=== PATIENT | male | born 1985 | race American Indian/Alaskan Native ===

== ENCOUNTER 2017-07-01 21:25 | Emergency (ER) | payer OTHER ==
[2017-07-01 21:36] VITALS: BP 160/105
[2017-07-01] MEDS ORDERED: TORADOL IM ONE (22:41)
--- NOTE | 2017-07-01 22:46 | Emergency Department Report ---
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 MD Complaint: back pain Onset/Timin -: days(s) Similar Symptoms Previously: Yes Place: work Radiation: right leg Severity: moderate Severity scale (0 -10): 5 Quality: burning, sharp Consistency: intermittent Improves With: other (rest) Worsens With: movement, other (bending twistin heavy lifting) Associated Symptoms: denies: weakness, numbness, difficulty urinating, incontinence, fever/chills - Related Data Previous Rx's Medication Instructions Recorded Last Taken Type Cetirizine HCl [Allergy Relief] 10 mg PO DAILY #30 tablet 01/13/15 Unknown Rx Ciprofloxacin HCl [Cipro] 500 mg PO Q12H #14 tab 01/13/15 Unknown Rx Fluticasone Propionate [Flonase] 100 mcg NS QDAY #1 spray.susp 01/13/15 Unknown Rx Ibuprofen [Motrin] 800 mg PO Q8H PRN #30 tablet 01/13/15 Unknown Rx traMADol [Ultram] 50 mg PO Q6HR PRN #14 tablet 01/13/15 Unknown Rx Starch 51%(Nf) [Anusol] 1 each IN BID PRN #10 supp.rect 05/23/15 Unknown Rx Cyclobenzaprine [Flexeril] 10 mg PO TID PRN #30 tablet 07/01/17 Unknown Rx Naproxen [Naprosyn TAB] 500 mg PO BID PRN #60 tablet 07/01/17 Unknown Rx Allergies Allergy/AdvReac Type Severity Reaction Status Date / Time No Known Allergies Allergy Verified 01/13/15 05:22 ED Review of Systems ROS: Stated complaint: BACK PAIN Other details as noted in HPI Constitutional: denies: chills, fever Eyes: denies: eye pain, eye discharge, vision change ENT: denies: ear pain, throat pain Respiratory: denies: cough, shortness of breath, wheezing Cardiovascular: denies: chest pain, palpitations Endocrine: no symptoms reported Gastrointestinal: denies: abdominal pain, nausea, diarrhea Genitourinary: denies: urgency, dysuria Musculoskeletal: back pain, myalgia. denies: joint swelling, arthralgia Skin: denies: rash, lesions Neurological: denies: headache, weakness, paresthesias Psychiatric: denies: anxiety, depression Hematological/Lymphatic: denies: easy bleeding, easy bruising ED Past Medical Hx - Past Medical History Previous Medical History?: No - Surgical History Past Surgical History?: No - Social History Smoking Status: Never Smoker Substance Use Type: None - Medications Home Medications: Home Medications Medication Instructions Recorded Confirmed Last Taken Type Cetirizine HCl [Allergy Relief] 10 mg PO DAILY #30 tablet 01/13/15 Unknown Rx Ciprofloxacin HCl [Cipro] 500 mg PO Q12H #14 tab 01/13/15 Unknown Rx Fluticasone Propionate [Flonase] 100 mcg NS QDAY #1 spray.susp 01/13/15 Unknown Rx Ibuprofen [Motrin] 800 mg PO Q8H PRN #30 tablet 01/13/15 Unknown Rx traMADol [Ultram] 50 mg PO Q6HR PRN #14 tablet 01/13/15 Unknown Rx Starch 51%(Nf) [Anusol] 1 each IN BID PRN #10 supp.rect 05/23/15 Unknown Rx Cyclobenzaprine [Flexeril] 10 mg PO TID PRN #30 tablet 07/01/17 Unknown Rx Naproxen [Naprosyn TAB] 500 mg PO BID PRN #60 tablet 07/01/17 Unknown Rx ED Physical Exam - General Limitations: No Limitations General appearance: alert, in no apparent distress - Head Head exam: Present: atraumatic, normocephalic - Eye Eye exam: Present: normal appearance - ENT ENT exam: Present: mucous membranes moist - Neck Neck exam: Present: normal inspection - Respiratory Respiratory exam: Present: normal lung sounds bilaterally. Absent: respiratory distress - Cardiovascular Cardiovascular Exam: Present: regular rate, normal rhythm. Absent: systolic murmur, diastolic murmur, rubs, gallop - GI/Abdominal GI/Abdominal exam: Present: soft, normal bowel sounds - Rectal Rectal exam: Present: deferred - Extremities Exam Extremities exam: Present: normal inspection - Back Exam Back exam: Present: normal inspection, tenderness, muscle spasm (no posterior vertebral point tenderness no paraspinus muscle tenderness pos straight leg raise right ). Absent: CVA tenderness (R), CVA tenderness (L), paraspinal tenderness, vertebral tenderness, rash noted - Expanded Back Exam Expanded Back exam: Absent: saddle anesthesia Back exam: Sciatic Notch Tenderness: Right, Positive Straight Leg Raise: Right, Negative Straight Leg Raising: Left - Neurological Exam Neurological exam: Present: alert, oriented X3, CN II-XII intact, normal gait, reflexes normal - Expanded Neurological Exam Expanded Patient oriented to: Present: person, place, time Speech: Present: fluid speech Cranial nerves: EOM's Intact: Normal, Gag Reflex: Normal, Tongue Deviation: Normal, Nystagmus: Normal, Facial Sensation: Normal Cerebellar function: Finger to Nose: Normal, Heel to Mcdonald: Normal, Romberg: Normal Upper motor neuron: Lebron Neglect: Normal, Pronator Drift: Normal, Babinski Sign : Normal, Sensory Extinction: Normal Sensory exam: Upper Extremity Light Touch: Normal, Upper Extremity Pin Prick: Normal, Upper Extremity Temperature: Normal, UE 2 Point Discrimination: Normal, Lower Extremity Light Touch: Normal, Lower Extremity Pin Prick: Normal, Lower Extremity Temperature: Normal, LE 2 Point Discrimination: Normal Motor strength exam: RUE: 5, LUE: 5, RLE: 5, LLE: 5 DTR: bicep (R): 2+, bicep (L): 2+, tricep (R): 2+, tricep (L): 2+, knee (R): 2+ , knee (L): 2+, ankle (R): 2+, ankle (L): 2+ Best Eye Response (Montse): (4) open spontaneously Best Motor Response (Montse): (6) obeys commands Best Verbal Response (Montse): (5) oriented [place] Total: 15 - Psychiatric Psychiatric exam: Present: normal affect, normal mood - Skin Skin exam: Present: warm, dry, intact, normal color. 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 exam: back no deformity no ecchymosis no abrasion no laceration no posterior vertebral point tenderness no paraspinus muscle tenderness pos straight leg righ no weakness no paresthesis no numbness no tingling no loss or decrease in bowel or bladder function will treat this low back strain with nsaids and muscle relaxants with moist heat therapy , pt will follow up with primary care if symptoms not improving, pt with htn episode this visit pt denies symptoms no headache no dizziness no lightheadedness no cp no sob pt is a/o x 3 ambulatory to baseline with nad pt avised to maintain bp log and bring to pcp follow up appointment for evaluation of bp, pt verbalized agreement and understanding with same. Critical care attestation.: If time is entered above; I have spent that time in minutes in the direct care of this critically ill patient, excluding procedure time. ED Disposition Clinical Impression: Low back strain Qualifiers: Encounter type: initial encounter Qualified Code(s): S39.012A - Strain of muscle, fascia and tendon of lower back, initial encounter Disposition: DC-01 TO HOME OR SELFCARE Is pt being admited?: No Does the pt Need Aspirin: No Condition: Good Instructions: Low Back Strain (ED), Core Strengthening Exercises (GEN) Prescriptions: Cyclobenzaprine [Flexeril] 10 mg PO TID PRN #30 tablet PRN Reason: Muscle Spasm Naproxen [Naprosyn TAB] 500 mg PO BID PRN #60 tablet PRN Reason: Pain Referrals: PRIMARY CARE, [Primary Care Provider] - 3-5 Days Forms: Work/School Release Form(ED) Time of Disposition: 22:55
== END 2017-07-01 23:02 | disposition home or self-care (01) ==
LOC: ED 21:25
DX: S39.012A Strain of muscle, fascia and tendon of lower back, initial encounter (principal); X50.0XXA Overexertion from strenuous movement or load, initial encounter; Y93.9 Activity, unspecified; Y92.89 Other specified places as the place of occurrence of the external cause; Y99.9 Unspecified external cause status
CPT/HCPCS: 96372; 99282; J1885

== ENCOUNTER 2017-10-23 10:09 | Observation (INO) | payer OTHER ==
[2017-10-23 11:16] LABS: Basophils # (Auto) 0.1 K/mm3 (0.0-0.1); Basophils % (Auto) 1.1 % (0.0-1.8); Eosinophils # (Auto) 0.2 K/mm3 (0.0-0.4); Eosinophils % (Auto) 1.8 % (0.0-4.3); Hemoglobin 15.5 gm/dl (11.8-15.2); Lymphocytes % (Auto) 23.8 % (13.4-35.0); Mean Corpuscular HGB Conc 34 % (32-34); Mean Corpuscular Hemoglobin 30 pg (28-32); Mean Corpuscular Volume 88 fl (84-94); Monocytes # (Auto) 0.7 K/mm3 (0.0-0.8); Monocytes % (Auto) 7.7 % (0.0-7.3); Platelet Count 302 K/mm3 (140-440); Red Blood Count 5.24 M/mm3 (3.65-5.03); Red Cell Distribution Width 13.1 % (13.2-15.2)
[2017-10-23 11:26] LABS: BUN/Creatinine Ratio 19; Blood Urea Nitrogen 15 mg/dL (9-20); Calcium 9.9 mg/dL (8.4-10.2); Hemolysis Index 5
[2017-10-23] MEDS ORDERED: NORCO 5/325 PO ONE (12:36)
--- NOTE | 2017-10-23 12:45 | Emergency Department Report ---
ED Chest Pain HPI - General Chief Complaint: Chest Pain Stated Complaint: CHEST PAIN Time Seen by Provider: 10/23/17 12:26 Source: patient Mode of arrival: Ambulatory Limitations: No Limitations - History of Present Illness Initial Comments: 32-year-old male with no significant past medical history presents to the Hospital complaining of headache, chest pain, and no syncopal episode. Symptoms started at 7 AM or ambulating. Patient states he felt lightheaded, his vision got dark, the next and you know he was down on his knees. He denies loc or head injury. Patient states he has a bitemporal headache that is moderate in intensity. Episode he had chest tightness associated shortness of breath and felt clammy. He denies nausea, vomiting, or diaphoresis. Patient denies blurry vision no focal deficits at this time. Patient denies smoking, family history of CAD, or personal cardiac history. Reports a negative stress test last year performance down the street from the hospital but patient cannot recall the group name. Previous medical records reviewed and patient has repeated elevated blood pressures but denies a history of hypertension. Patient denies having a primary care doctor or having reliable follow-up because he does not like to see doctors. Patient denies calf tenderness, edema , or recent travel. - Related Data Previous Rx's Medication Instructions Recorded Last Taken Type Cetirizine HCl [Allergy Relief] 10 mg PO DAILY #30 tablet 01/13/15 Unknown Rx Ciprofloxacin HCl [Cipro] 500 mg PO Q12H #14 tab 01/13/15 Unknown Rx Fluticasone Propionate [Flonase] 100 mcg NS QDAY #1 spray.susp 01/13/15 Unknown Rx Ibuprofen [Motrin] 800 mg PO Q8H PRN #30 tablet 01/13/15 Unknown Rx traMADol [Ultram] 50 mg PO Q6HR PRN #14 tablet 01/13/15 Unknown Rx Starch 51%(Nf) [Anusol] 1 each ND BID PRN #10 supp.rect 05/23/15 Unknown Rx Cyclobenzaprine [Flexeril] 10 mg PO TID PRN #30 tablet 07/01/17 Unknown Rx Naproxen [Naprosyn TAB] 500 mg PO BID PRN #60 tablet 07/01/17 Unknown Rx Allergies Allergy/AdvReac Type Severity Reaction Status Date / Time No Known Allergies Allergy Verified 10/23/17 10:13 Heart Score - HEART Score History: Slightly suspicious EKG: Normal Age: < 45 Risk factors: 1-2 risk factors Troponin: < normal limit HEART Score: 1 ED Review of Systems ROS: Stated complaint: CHEST PAIN Other details as noted in HPI Comment: All other systems reviewed and negative Other: Constitutional: No fevers chills Eyes: No eye pain visual changes ENT: No ear pain or throat pain Neck: Denies pain Respiratory: Denies cough wheezing Cardiovascular: Positive heart fluttering with episode GI: Denies abdominal pain, nausea, vomiting, diarrhea : Denies dysuria Musculoskeletal: Denies back pain Skin: Denies rash, lesions, erythema Neurologic: Denies numbness, focal weakness Psychiatric: Denies suicidal ideation, hallucinations ED Past Medical Hx - Past Medical History Previous Medical History?: No - Surgical History Past Surgical History?: No - Social History Smoking Status: Never Smoker Substance Use Type: Alcohol - Medications Home Medications: Home Medications Medication Instructions Recorded Confirmed Last Taken Type Cetirizine HCl [Allergy Relief] 10 mg PO DAILY #30 tablet 01/13/15 Unknown Rx Ciprofloxacin HCl [Cipro] 500 mg PO Q12H #14 tab 01/13/15 Unknown Rx Fluticasone Propionate [Flonase] 100 mcg NS QDAY #1 spray.susp 01/13/15 Unknown Rx Ibuprofen [Motrin] 800 mg PO Q8H PRN #30 tablet 01/13/15 Unknown Rx traMADol [Ultram] 50 mg PO Q6HR PRN #14 tablet 01/13/15 Unknown Rx Starch 51%(Nf) [Anusol] 1 each ND BID PRN #10 supp.rect 05/23/15 Unknown Rx Cyclobenzaprine [Flexeril] 10 mg PO TID PRN #30 tablet 07/01/17 Unknown Rx Naproxen [Naprosyn TAB] 500 mg PO BID PRN #60 tablet 07/01/17 Unknown Rx ED Physical Exam - General Limitations: No Limitations - Other Other exam information: General: No limitations, patient is alert in no acute distress Head exam: Atraumatic, normocephalic Eyes exam: Normal appearance, pupils equal reactive to light, extraocular movements intact ENT: Moist mucous membrane, normal oropharynx Neck exam: Normal inspection, full range of motion, no meningismus nontender Respiratory exam: Clear to auscultation bilateral, no wheezes, rales, crackles Cardiovascular: Normal rate and rhythm, normal heart sounds chest wall nontender Abdomen: Soft, nondistended, and nontender, with normal bowel sounds, no rebound, or guarding Extremity: Full range of motion normal inspection no deformity Back: Normal Inspection, full range of motion, no tenderness Neurologic: Alert, oriented x3, cranial nerves intact, no motor or sensory deficit Psychiatric: normal affect, normal mood Skin: Warm, dry, intact ED Course Vital Signs 10/23/17 10:13 Temperature 97.8 F Pulse Rate 77 Respiratory 18 Rate Blood Pressure 170/106 O2 Sat by Pulse 100 Oximetry - Reevaluation(s) Reevaluation #1: 10/23/17 13:19 orthostatics neg Irving for FOUNTAIN ordered ASA for cp (now resolved) BEATRICE score - Beatrice Score Age > 65: (0) No Aspirin use within the Past 7 Days: (0) No 3 or more CAD Risk Factors: (0) No 2 or more Angina events in past 24 hrs: (0) No Known CAD with more than 50% Stenosis: (0) No Elevated Cardiac Markers: (0) No ST Deviation Greater than 0.5mm: (0) No BEATRICE Score: 0 ED Medical Decision Making - Lab Data Result diagrams: 10/23/17 10:33 10/23/17 10:30 Lab Results 10/23/17 10/23/17 Range/Units 10:30 10:33 WBC 8.6 (4.5-11.0) K/mm3 RBC 5.24 H (3.65-5.03) M/mm3 Hgb 15.5 H (11.8-15.2) gm/dl Hct 46.0 H (35.5-45.6) % MCV 88 (84-94) fl MCH 30 (28-32) pg MCHC 34 (32-34) % RDW 13.1 L (13.2-15.2) % Plt Count 302 (140-440) K/mm3 Lymph % (Auto) 23.8 (13.4-35.0) % Posey % (Auto) 7.7 H (0.0-7.3) % Eos % (Auto) 1.8 (0.0-4.3) % Baso % (Auto) 1.1 (0.0-1.8) % Lymph # 2.0 (1.2-5.4) K/mm3 Posey # 0.7 (0.0-0.8) K/mm3 Eos # 0.2 (0.0-0.4) K/mm3 Baso # 0.1 (0.0-0.1) K/mm3 Seg Neutrophils % 65.6 (40.0-70.0) % Seg Neutrophils # 5.6 (1.8-7.7) K/mm3 Sodium 141 (137-145) mmol/L Potassium 4.6 (3.6-5.0) mmol/L Chloride 101.2 (98-107) mmol/L Carbon Dioxide 27 (22-30) mmol/L Anion Gap 17 mmol/L BUN 15 (9-20) mg/dL Creatinine 0.8 (0.8-1.5) mg/dL Estimated GFR > 60 ml/min BUN/Creatinine Ratio 19 % Glucose 98 (75-100) mg/dL Calcium 9.9 (8.4-10.2) mg/dL Troponin T < 0.010 (0.00-0.029) ng/mL - EKG Data -: EKG Interpreted by Me (left posterior fasciuclar block) EKG shows normal: sinus rhythm, axis (150), QRS complexes (104), ST-T waves (no semi/t inv) Rate: normal - EKG Data When compared to previous EKG there are: no significant change (comparedto ) - Radiology Data Radiology results: report reviewed (ct head: naf) - Medical Decision Making Plan to admit for cp near syncope workup. Initial head CT unremarkable. EKG unchanged. Hospitalist informed - Differential Diagnosis dehydration, arrhythmia, MO, unstable angina, PE, ICH Critical Care Time: No Critical care attestation.: If time is entered above; I have spent that time in minutes in the direct care of this critically ill patient, excluding procedure time. ED Disposition Clinical Impression: Syncope, near, Headache, Chest pain, Hypertension Disposition: OP ADMIT IP TO THIS HOSP Is pt being admited?: Yes Does the pt Need Aspirin: Yes Condition: Stable Time of Disposition: 13:18 [facility]
--- NOTE | 2017-10-23 13:02 | Cat Scan Report ---
CT HEAD WITHOUT CONTRAST: 10/23/17 10:09:00 CLINICAL: Headache and near syncope. TECHNIQUE: 2.5-mm noncontrast scans. COMPARISON:None FINDINGS: The ventricles and sulci are normal for age. No abnormal density. No mass or mass effect. No hemorrhage, edema or extra-axial collection. The sinuses are clear. Normal orbits and soft tissues. The calvarium and skull base are intact. IMPRESSION: Normal head CT.
--- NOTE | 2017-10-23 13:47 | XRay Report ---
CHEST TWO VIEWS: 10/23/17 10:09:00 CLINICAL: Chest pain. COMPARISON: 01/12/15 FINDINGS: The heart is normal size with a left ventricular contour. Normal pulmonary vessels. The lungs are normally expanded and clear.The bones and soft tissues are unremarkable. IMPRESSION: Hypertensive changes in the heart. No acute cardiopulmonary process.
--- NOTE | 2017-10-23 15:42 | History and Physical Report ---
History of Present Illness Date of examination: 10/23/17 Date of admission: 10/23/17 15:34 Chief complaint: Chief complaint: passed out couple of hours ago. History of present illness: History of present illness:32-year-old -[place] male with past medical history of allergic rhinitis muscle spasms and borderline hypertension not on any medications for blood pressure comes in for passing out at work after leaving work. No chest pain. No fever no chills. No shortness of breath.[place]ulcan lightheaded. Has a headache. No recent travel. Review of System: Constitutional: no fever, no chills, no weight loss Ears, eyes, nose, mouth and throat: no nasal congestion, no nasal discharge, no sinus pressure, no vision change, no red eye. Neck: No neck pain or rigidity. Cardiovascular: No chest pain, no orthopnea, no palpitations, no leg swelling Respiratory: No shortness of breath, no cough, no congestion, no wheezing Gastrointestinal: no abdominal pain, no nausea, no vomiting Genitourinary : no dysuria, no hematuria Musculoskeletal: no joint swelling or muscle ache Integumentary: no rash, no pruritis Neurological: syncope and lightheadedness Endocrine: no cold or heat intolerance, no polyuria or polydipsia Hematologic/Lymphatic: no easy bruising, no easy bleeding, no gland swelling Allergic/Immunologic: no urticaria, no angioedema. Past History Past Medical History: hypertension (borderline), other (allergic rhinitis and muscle spasms) Past Surgical History: No surgical history Social history: no significant social history, lives with family, full code Family history: hypertension Medications and Allergies Allergies Allergy/AdvReac Type Severity Reaction Status Date / Time No Known Allergies Allergy Verified 10/23/17 10:13 Home Medications Medication Instructions Recorded Confirmed Last Taken Type Cetirizine HCl [Allergy Relief] 10 mg PO DAILY #30 tablet 01/13/15 Unknown Rx Ciprofloxacin HCl [Cipro] 500 mg PO Q12H #14 tab 01/13/15 Unknown Rx Fluticasone Propionate [Flonase] 100 mcg NS QDAY #1 spray.susp 01/13/15 Unknown Rx Ibuprofen [Motrin] 800 mg PO Q8H PRN #30 tablet 01/13/15 Unknown Rx traMADol [Ultram] 50 mg PO Q6HR PRN #14 tablet 01/13/15 Unknown Rx Starch 51%(Nf) [Anusol] 1 each ND BID PRN #10 supp.rect 05/23/15 Unknown Rx Cyclobenzaprine [Flexeril] 10 mg PO TID PRN #30 tablet 07/01/17 Unknown Rx Naproxen [Naprosyn TAB] 500 mg PO BID PRN #60 tablet 07/01/17 Unknown Rx Review of Systems All systems: negative Constitutional: no weight loss, no weight gain, no fever, no chills, no sweats, no night sweats Exam - Physical Exam Narrative exam: Lying in bed comfortably - Constitutional Vitals: Temp Pulse Resp BP Pulse Ox 98.0 F 77 16 144/91 97 10/23/17 13:15 10/23/17 13:18 10/23/17 13:19 10/23/17 13:18 10/23/17 13:19 General appearance: Present: no acute distress, well-nourished - EENT Eyes: Present: PERRL ENT: hearing intact, clear oral mucosa - Neck Neck: Present: supple, normal ROM - Respiratory Respiratory effort: normal Respiratory: bilateral: CTA - Cardiovascular Heart rate: 70 Rhythm: regular Heart Sounds: Present: S1 & S2. Absent: rub, click - Extremities Extremities: no ischemia, pulses intact, pulses symmetrical, No edema Peripheral Pulses: within normal limits - Abdominal General gastrointestinal: Present: soft, non-tender, non-distended, normal bowel sounds Male genitourinary: Present: normal - Rectal Rectal Exam: deferred - Integumentary Integumentary: Present: clear, warm, dry - Musculoskeletal Musculoskeletal: gait normal, strength equal bilaterally - Psychiatric Psychiatric: appropriate mood/affect, intact judgment & insight - Neurologic Neurologic: CNII-XII intact, moves all extremities - Allied Health Allied health notes reviewed: nursing, case management (he is) Results - Labs CBC & Chem 7: 10/23/17 10:33 10/23/17 10:30 Labs: Laboratory Last Values WBC 8.6 K/mm3 (4.5-11.0) 10/23/17 10:33 RBC 5.24 M/mm3 (3.65-5.03) H 10/23/17 10:33 Hgb 15.5 gm/dl (11.8-15.2) H 10/23/17 10:33 Hct 46.0 % (35.5-45.6) H 10/23/17 10:33 MCV 88 fl (84-94) 10/23/17 10:33 MCH 30 pg (28-32) 10/23/17 10:33 MCHC 34 % (32-34) 10/23/17 10:33 RDW 13.1 % (13.2-15.2) L 10/23/17 10:33 Plt Count 302 K/mm3 (140-440) 10/23/17 10:33 Lymph % (Auto) 23.8 % (13.4-35.0) 10/23/17 10:33 Garza % (Auto) 7.7 % (0.0-7.3) H 10/23/17 10:33 Eos % (Auto) 1.8 % (0.0-4.3) 10/23/17 10:33 Baso % (Auto) 1.1 % (0.0-1.8) 10/23/17 10:33 Lymph # 2.0 K/mm3 (1.2-5.4) 10/23/17 10:33 Garza # 0.7 K/mm3 (0.0-0.8) 10/23/17 10:33 Eos # 0.2 K/mm3 (0.0-0.4) 10/23/17 10:33 Baso # 0.1 K/mm3 (0.0-0.1) 10/23/17 10:33 Seg Neutrophils % 65.6 % (40.0-70.0) 10/23/17 10:33 Seg Neutrophils # 5.6 K/mm3 (1.8-7.7) 10/23/17 10:33 Sodium 141 mmol/L (137-145) 10/23/17 10:30 Potassium 4.6 mmol/L (3.6-5.0) 10/23/17 10:30 Chloride 101.2 mmol/L (98-107) 10/23/17 10:30 Carbon Dioxide 27 mmol/L (22-30) 10/23/17 10:30 Anion Gap 17 mmol/L 10/23/17 10:30 BUN 15 mg/dL (9-20) 10/23/17 10:30 Creatinine 0.8 mg/dL (0.8-1.5) 10/23/17 10:30 Estimated GFR > 60 ml/min 10/23/17 10:30 BUN/Creatinine Ratio 19 % 10/23/17 10:30 Glucose 98 mg/dL (75-100) 10/23/17 10:30 Calcium 9.9 mg/dL (8.4-10.2) 10/23/17 10:30 Troponin T < 0.010 ng/mL (0.00-0.029) 10/23/17 12:59 Short CBC 10/23/17 Range/Units 10:33 WBC 8.6 (4.5-11.0) K/mm3 Hgb 15.5 H (11.8-15.2) gm/dl Hct 46.0 H (35.5-45.6) % Plt Count 302 (140-440) K/mm3 BMP 10/23/17 10:30 Sodium 141 Potassium 4.6 Chloride 101.2 Carbon Dioxide 27 BUN 15 Creatinine 0.8 Glucose 98 Calcium 9.9 Cardiac Enzymes 10/23/17 10/23/17 Range/Units 10:30 12:59 Troponin T < 0.010 < 0.010 (0.00-0.029) ng/mL - Imaging and Cardiology EKG: report reviewed (sinus rhythm with heart rate of 80/m left posterior fascicular block and LVH. Deep S waves in lead V 2 lead V3) Chest x-ray: report reviewed (hypertensive changes in the heart) Assessment and Plan Advance Directives: Yes (full code) VTE prophylaxis?: Chemical Plan of care discussed with patient/family: Yes - Patient Problems (1) Syncope and collapse Current Visit: Yes Status: Acute Plan to address problem: patient had syncope. We will get a carotid duplex scan echocardiogram and Lexiscan as part of workup for syncope (2) Hypertension Current Visit: Yes Status: Chronic Qualifiers: Hypertension type: essential hypertension Qualified Code(s): I10 - Essential (primary) hypertension Plan to address problem: atient has high blood pressure with multiple high readings. Patient needs to on antihypertensive.He has an enlarged heart secondary to hypertension.Will start him on losartan 100 mg once a day. Patient to be discharged on losartan. patient to be counseled about his bp. (3) Headache Current Visit: Yes Status: Chronic Qualifiers: Headache type: tension-type Plan to address problem: Fioricet 3 times a day when necessary (4) Allergic rhinitis Current Visit: Yes Status: Chronic Qualifiers: Chronicity: chronic Allergic rhinitis trigger: pollen Plan to address problem: continue Flonase (5) DVT prophylaxis Current Visit: Yes Status: Acute Plan to address problem: patient on Lovenox 40 mg subcutaneous qd
[2017-10-23] MEDS ORDERED: MILK OF MAGNESIA PO PRN (15:43)
[2017-10-23] MEDS ORDERED: TYLENOL PO PRN (15:43)
[2017-10-23] MEDS ORDERED: ZOFRAN IV PRN (15:43)
[2017-10-23] MEDS ORDERED: DULCOLAX PR PRN (15:43)
[2017-10-23] MEDS ORDERED: PERCOCET 5/325 PO PRN (15:44)
[2017-10-23] MEDS ORDERED: MORPHINE IV PRN (15:44)
[2017-10-23] MEDS ORDERED: D5/0.45NS 1,000 ML IV SCH (16:00)
[2017-10-23] MEDS ORDERED: MORPHINE ONE (16:02)
[2017-10-23 18:44] LABS: Creatine Kinase MB 4.1 ng/mL (0.0-4.0)
[2017-10-23] MEDS: PEPCID PO SCH (22:00)
[2017-10-23] MEDS ORDERED: AMBIEN PO PRN (22:00)
[2017-10-23 23:25] LABS: Creatine Kinase MB 3.7 ng/mL (0.0-4.0)
[2017-10-24 05:59] LABS: Basophils % (Auto) 0.4 % (0.0-1.8); Eosinophils # (Auto) 0.2 K/mm3 (0.0-0.4); Eosinophils % (Auto) 2.4 % (0.0-4.3); Hematocrit 47.1 % (35.5-45.6); Hemoglobin 15.6 gm/dl (11.8-15.2); Lymphocytes # (Auto) 2.1 K/mm3 (1.2-5.4); Lymphocytes % (Auto) 25.6 % (13.4-35.0); Mean Corpuscular HGB Conc 33 % (32-34); Mean Corpuscular Hemoglobin 29 pg (28-32); Mean Corpuscular Volume 87 fl (84-94); Monocytes # (Auto) 0.7 K/mm3 (0.0-0.8); Monocytes % (Auto) 8.4 % (0.0-7.3); Platelet Count 289 K/mm3 (140-440); Red Blood Count 5.43 M/mm3 (3.65-5.03); Red Cell Distribution Width 13.2 % (13.2-15.2)
[2017-10-24 06:28] LABS: Creatine Kinase MB 3.2 ng/mL (0.0-4.0)
[2017-10-24 06:32] LABS: Alanine Aminotransferase 24 units/L (7-56); Albumin 3.9 g/dL (3.9-5); BUN/Creatinine Ratio 17; Blood Urea Nitrogen 12 mg/dL (9-20); Calcium 9.4 mg/dL (8.4-10.2); Hemolysis Index 5
[2017-10-24] MEDS ORDERED: LEXISCAN IV ONE ×2 (08:16→08:22)
[2017-10-24] MEDS ORDERED: TYLENOL ONE (09:30)
[2017-10-24] MEDS: COZAAR PO SCH ×2 (11:38→13:37)
[2017-10-24] MEDS ORDERED: FLONASE NS SCH (12:00)
[2017-10-24] MEDS ORDERED: NORVASC PO SCH (12:00)
--- NOTE | 2017-10-24 13:24 | Discharge Summary ---
Providers - Providers Date of Admission: 10/23/17 15:34 Date of discharge: 10/24/17 Attending physician: DEBO MOMIN Primary care physician: [employer] SENIOR ASSOCIATE Hospitalization Condition: Stable Hospital course: 32-year-old -Beninese male with past medical history of allergic rhinitis muscle spasms and borderline hypertension not on any medications for blood pressure came in for a presyncopal episode near elevator after leaving work. Patient stated that he never passed out completely, no seizure like activities and did not hit his head with anything. In the ER his Ct head was unremarkable and BP was 170/106. He was further evaluated by carotid doppler which showed <50% stenosis b/l and myocardial stress test showed no reversible ischemia. His 2d echo showed preserved EF. He was placed on BP meds and ROE was monitored. He was advised to f/u with contracting manager for event monitor. Discharge diagnosis: (1) PreSyncope likely from uncontrolled HTN (2) Hypertension, uncontrolled (3) Tension Headache placed on fiorecet and symptom resolved (4) Allergic rhinitis continue Flonase (5) DVT prophylaxis patient placed on Lovenox 40 mg subcutaneous qd Disposition: DC- TO HOME OR SELFCARE Time spent for discharge: 32 minutes Core Measure Documentation - Palliative Care Palliative Care/ Comfort Measures: Not Applicable - Core Measures Any of the following diagnoses?: none Exam - Physical Exam Narrative exam: General appearance: Present: no acute distress, well-nourished - EENT Eyes: Present: PERRL ENT: hearing intact, clear oral mucosa - Neck Neck: Present: supple, normal ROM - Respiratory Respiratory effort: normal Respiratory: bilateral: CTA - Cardiovascular Heart rate: 70 Rhythm: regular Heart Sounds: Present: S1 & S2. Absent: rub, click - Extremities Extremities: no ischemia, pulses intact, pulses symmetrical, No edema Peripheral Pulses: within normal limits - Abdominal General gastrointestinal: Present: soft, non-tender, non-distended, normal bowel sounds Male genitourinary: Present: normal - Rectal Rectal Exam: deferred - Integumentary Integumentary: Present: clear, warm, dry - Musculoskeletal Musculoskeletal: gait normal, strength equal bilaterally - Psychiatric Psychiatric: appropriate mood/affect, intact judgment & insight - Neurologic Neurologic: CNII-XII intact, moves all extremities - Allied Health Allied health notes reviewed: nursing, case management (he is) - Constitutional Vitals: Temp Pulse Resp BP Pulse Ox 98.3 F 116 H 21 146/88 99 10/24/17 06:03 10/24/17 09:09 10/24/17 06:03 10/24/17 09:09 10/24/17 06:03 Plan Activity: advance as tolerated Weight Bearing Status: Weight Bear as Tolerated Diet: low fat, low salt Additional Instructions: F/u with [facility] for event monitoring in one week. Follow up with: PRIMARY CARE, [Primary Care Provider] - 3-5 Days Forms: Work/School Release Form Prescriptions: RX: amLODIPine [Norvasc] 10 mg PO QDAY #30 tablet RX: Carvedilol [Coreg] 3.125 mg PO BID #60 tablet RX: Losartan [Cozaar] 100 mg PO QDAY #30 tablet
[2017-10-24 13:36] VITALS: BP 146/85
[2017-10-24] MEDS: PEPCID PO SCH (13:43)
[2017-10-24] MEDS ORDERED: COREG PO SCH (14:00)
--- NOTE | 2017-10-24 22:34 | Treadmill Report ---
INDICATION: Chest pain. ORDERING PHYSICIAN: Emeka Conway MD FINDINGS: There is no scintigraphic evidence of myocardial ischemia. The left ventricle is normal in size. There is normal wall motion and wall thickening. The left ventricular ejection fraction is measured at 49%. CONCLUSION: 1. No scintigraphic evidence of myocardial ischemia. Normal wall motion and wall thickening with an ejection fraction measured at 49%. 2. This is a low risk myocardial perfusion scan associated with 1-year cardiovascular mortality of less than 1%. JOB# [id number] CLARISSE/CLARI
--- NOTE | 2017-10-25 15:08 | Vascular Lab Report ---
CAROTID DUPLEX STUDY: RIGHT PSVEDV CCA PROX:8716 CCA DIST:9419 ICA PROX:8416 ICA MID:5723 ICA DIST:6829 ECA: [id number] VERT: 50 22 LEFT PSVEDV CCA PROX:48129 CCA DIST:9625 ICA PROX:7322 ICA MID:6725 ICA DIST:6929 ECA: 9813 VERT: 47 13 REASON FOR EXAM: Syncope. COMMENTS ON THE RIGHT: Doppler frequency analysis is consistent with Less than 50% reduction of the internal carotid artery. The common carotid artery is patent. The external carotid artery is patent. The vertebral artery has antegrade flow. COMMENTS ON THE LEFT: Doppler frequency analysis is consistent with Less than 50% diameter reduction of the internal carotid artery. The common carotid artery is patent. The external carotid artery is patent. The vertebral artery has antegrade flow. IMPRESSION: Less than 50% diameter reduction in the internal carotid arteries bilaterally.
== END 2017-10-24 16:15 | disposition home or self-care (01) ==
LOC: ED 10:09 → INTOOBSV 15:34 → 4A 15:34
PROVIDERS: ADMIT Internal Medicine; ATTEND Internal Medicine
DX: R55 Syncope and collapse (principal); J30.9 Allergic rhinitis, unspecified; G44.209 Tension-type headache, unspecified, not intractable; R07.9 Chest pain, unspecified; I10 Essential (primary) hypertension; Z82.49 Family history of ischemic heart disease and other diseases of the circulatory system
CPT/HCPCS: 36415; 70450; 71020; 78452; 80048; 80053; 82550; 82553; 84484; 85025; 93005; 93010; 93017; 93306; 93880; 96361; 96374; 99285; A9502; G0378; J2270; J2785

== ENCOUNTER 2017-10-25 17:35 | Emergency (ER) | payer OTHER ==
[2017-10-25 17:59] VITALS: BP 141/92
== END 2017-10-26 02:50 | disposition left against medical advice (07) ==
LOC: ED 17:35
DX: R07.9 Chest pain, unspecified (principal); Z53.21 Procedure and treatment not carried out due to patient leaving prior to being seen by health care provider

== ENCOUNTER 2018-03-19 23:31 | Emergency (ER) | payer OTHER ==
[2018-03-19 23:39] VITALS: BP 132/94
--- NOTE | 2018-03-20 00:36 | XRay Report ---
FINAL REPORT EXAM: XR ANKLE 2V RT HISTORY: rt ankle swelling and pain TECHNIQUE: AP and lateral views of the right ankle were submitted. FINDINGS: The ankle mortise is well maintained. There is no evidence of fracture or joint effusion. The soft tissues are unremarkable. IMPRESSION: Within normal limits.
--- NOTE | 2018-03-20 00:48 | Emergency Department Report ---
ED Extremity Problem HPI - General Chief complaint: Extremity Injury, Lower Stated complaint: RIGHT ANKLE PAIN Time Seen by Provider: 03/20/18 00:42 Source: patient Mode of arrival: Ambulatory Limitations: No Limitations - History of Present Illness Initial comments: 32 y/o -[place] male comes to the emergency room complaining of right ankle pain. Patient reports that he stepped on a pallet and his ankle went through the palate and broke the palate now having pain in his right ankle. Patient reports that this happened tonight. Patient reports he took some pain relief medicine but unsure if it was ibuprofen or acetaminophen. Patient reports a past medical history of hypertension but no longer taking medication he has no known drug allergies and currently takes no medications on a daily basis. MD Complaint: extremity pain -: This evening Location: right History of Same: No -: Yes arthralgia Radiation: none Severity scale (0 -10): 9 Quality: aching Consistency: constant, intermittent Improves with: nothing Worsens with: weight bearing - Related Data Previous Rx's Medication Instructions Recorded Last Taken Type Cetirizine HCl [Allergy Relief] 10 mg PO DAILY #30 tablet 01/13/15 Unknown Rx Ciprofloxacin HCl [Cipro] 500 mg PO Q12H #14 tab 01/13/15 Unknown Rx Fluticasone Propionate [Flonase] 100 mcg NS QDAY #1 spray.susp 01/13/15 Unknown Rx Ibuprofen [Motrin] 800 mg PO Q8H PRN #30 tablet 01/13/15 Unknown Rx traMADol [Ultram] 50 mg PO Q6HR PRN #14 tablet 01/13/15 Unknown Rx Starch 51%(Nf) [Anusol] 1 each NC BID PRN #10 supp.rect 05/23/15 Unknown Rx Cyclobenzaprine [Flexeril] 10 mg PO TID PRN #30 tablet 07/01/17 Unknown Rx Naproxen [Naprosyn TAB] 500 mg PO BID PRN #60 tablet 07/01/17 Unknown Rx Carvedilol [Coreg] 3.125 mg PO BID #60 tablet 10/24/17 Unknown Rx Losartan [Cozaar] 100 mg PO QDAY #30 tablet 10/24/17 Unknown Rx amLODIPine [Norvasc] 10 mg PO QDAY #30 tablet 10/24/17 Unknown Rx Ibuprofen [Motrin 800 MG tab] 800 mg PO Q8HR PRN #30 tablet 03/20/18 Unknown Rx Allergies Allergy/AdvReac Type Severity Reaction Status Date / Time No Known Allergies Allergy Verified 10/23/17 10:13 ED Review of Systems ROS: Stated complaint: RIGHT ANKLE PAIN Other details as noted in HPI Comment: All other systems reviewed and negative Constitutional: denies: chills, fever Gastrointestinal: denies: abdominal pain, nausea, diarrhea Genitourinary: denies: urgency, dysuria Musculoskeletal: joint swelling, arthralgia Skin: denies: rash, lesions Neurological: denies: headache, weakness, paresthesias ED Past Medical Hx - Past Medical History Previous Medical History?: Yes Additional medical history: chest pain - Surgical History Past Surgical History?: No - Social History Smoking Status: Former Smoker Substance Use Type: Alcohol - Medications Home Medications: Home Medications Medication Instructions Recorded Confirmed Last Taken Type Cetirizine HCl [Allergy Relief] 10 mg PO DAILY #30 tablet 01/13/15 Unknown Rx Ciprofloxacin HCl [Cipro] 500 mg PO Q12H #14 tab 01/13/15 Unknown Rx Fluticasone Propionate [Flonase] 100 mcg NS QDAY #1 spray.susp 01/13/15 Unknown Rx Ibuprofen [Motrin] 800 mg PO Q8H PRN #30 tablet 01/13/15 Unknown Rx traMADol [Ultram] 50 mg PO Q6HR PRN #14 tablet 01/13/15 Unknown Rx Starch 51%(Nf) [Anusol] 1 each NC BID PRN #10 supp.rect 05/23/15 Unknown Rx Cyclobenzaprine [Flexeril] 10 mg PO TID PRN #30 tablet 07/01/17 Unknown Rx Naproxen [Naprosyn TAB] 500 mg PO BID PRN #60 tablet 07/01/17 Unknown Rx Carvedilol [Coreg] 3.125 mg PO BID #60 tablet 10/24/17 Unknown Rx Losartan [Cozaar] 100 mg PO QDAY #30 tablet 10/24/17 Unknown Rx amLODIPine [Norvasc] 10 mg PO QDAY #30 tablet 10/24/17 Unknown Rx Ibuprofen [Motrin 800 MG tab] 800 mg PO Q8HR PRN #30 tablet 03/20/18 Unknown Rx ED Physical Exam - General Limitations: No Limitations General appearance: alert, in no apparent distress - Head Head exam: Present: atraumatic, normocephalic - Expanded Lower Extremity Exam Right Hip exam: Present: normal inspection, full ROM Upper Leg exam: Present: normal inspection, full ROM Knee exam: Present: normal inspection, full ROM Lower Leg exam: Present: normal inspection, full ROM Ankle exam: Present: full ROM, tenderness (dorsum distal, medial malleolus), swelling Foot/Toe exam: Present: normal inspection, full ROM. Absent: tenderness, swelling Neuro vascular tendon exam: Present: no vascular compromise ED Course Vital Signs 03/19/18 23:31 Temperature 98.2 F Pulse Rate 86 Respiratory 18 Rate Blood Pressure 132/94 O2 Sat by Pulse 97 Oximetry ED Medical Decision Making - Radiology Data Radiology results: report reviewed, image reviewed FINAL REPORT EXAM: XR ANKLE 2V RT HISTORY: rt ankle swelling and pain TECHNIQUE: AP and lateral views of the right ankle were submitted. FINDINGS: The ankle mortise is well maintained. There is no evidence of fracture or joint effusion. The soft tissues are unremarkable. IMPRESSION: Within normal limits. Transcribed By: RB Dictated By: PILLO PRADO MD Electronically Authenticated By: PILLO PRADO MD Signed Date/Time: 03/20/1829 DD/ TD/TT: 03/20/1829 - Medical Decision Making Patient has been evaluated but this provider fast track. I discussed patient that his x-rays came back normal examination. Discussed patient us is most likely a ankle sprain. Discussed with patient that he needs to use rice therapy such as applying ice elevating wear an air cast and resting. Discussed patient I will discharge him home on ibuprofen for pain and swelling. He should follow-up with his primary care provider if symptoms persist or gets worse. Patient verbalized understanding. Critical care attestation.: If time is entered above; I have spent that time in minutes in the direct care of this critically ill patient, excluding procedure time. ED Disposition Clinical Impression: Sprain of right ankle Qualifiers: Encounter type: initial encounter Involved ligament of ankle: tibiofibular ligament Qualified Code(s): S93.431A - Sprain of tibiofibular ligament of right ankle, initial encounter Disposition: TO HOME OR SELFCARE Is pt being admited?: No Does the pt Need Aspirin: No Condition: Stable Instructions: Ankle Stirrup Splint (ED), Ankle Sprain (ED), Ankle Exercises ( GEN) Additional Instructions: Please take ibuprofen as prescribed. Please continue with elevation resting applying ice wearing her splint. If symptoms persist or gets worse please follow up with her primary care provider. Prescriptions: Ibuprofen [Motrin 800 MG tab] 800 mg PO Q8HR PRN #30 tablet PRN Reason: Pain Referrals: [facility] [Provider Group] - 3-5 Days Forms: Work/School Release Form(ED)
[2018-03-20] MEDS ORDERED: MOTRIN ONE (00:56)
[2018-03-20] MEDS ORDERED: MOTRIN PO ONE (01:01)
== END 2018-03-20 01:43 | disposition home or self-care (01) ==
LOC: ED 23:31
DX: S93.431A Sprain of tibiofibular ligament of right ankle, initial encounter (principal); Z87.891 Personal history of nicotine dependence; W22.8XXA Striking against or struck by other objects, initial encounter; Y93.89 Activity, other specified; Y99.9 Unspecified external cause status; Y92.89 Other specified places as the place of occurrence of the external cause

== ENCOUNTER 2021-02-17 09:28 | Emergency (ER) | payer OTHER ==
[2021-02-17 09:49] VITALS: BP 143/97
--- NOTE | 2021-02-17 12:33 | Emergency Department Report ---
<POOL EMERY - Last Filed: 02/17/21 19:32> ED General Adult HPI - General Chief complaint: Extremity Problem,Nontraumatic Stated complaint: BERNA LEG/FOOT PAIN Time Seen by Provider: 02/17/21 12:17 - Related Data Previous Rx's Medication Instructions Recorded Last Taken Type Cetirizine HCl [Allergy Relief] 10 mg PO DAILY #30 tablet 01/13/15 Unknown Rx Ciprofloxacin HCl [Cipro] 500 mg PO Q12H #14 tab 01/13/15 Unknown Rx Fluticasone Propionate [Flonase] 100 mcg NS QDAY #1 spray.susp 01/13/15 Unknown Rx Ibuprofen [Motrin] 800 mg PO Q8H PRN #30 tablet 01/13/15 Unknown Rx traMADoL [Ultram] 50 mg PO Q6HR PRN #14 tablet 01/13/15 Unknown Rx Starch 51%(Nf) [Anusol] 1 each MD BID PRN #10 supp.rect 05/23/15 Unknown Rx Cyclobenzaprine [Flexeril] 10 mg PO TID PRN #30 tablet 07/01/17 Unknown Rx Naproxen [Naprosyn TAB] 500 mg PO BID PRN #60 tablet 07/01/17 Unknown Rx Losartan [Cozaar] 100 mg PO QDAY #30 tablet 10/24/17 Unknown Rx amLODIPine 10 mg PO QDAY #30 tablet 10/24/17 Unknown Rx carvediloL [Coreg] 3.125 mg PO BID #60 tablet 10/24/17 Unknown Rx Ibuprofen [Motrin 800 MG tab] 800 mg PO Q8HR PRN #30 tablet 03/20/18 Unknown Rx Ketorolac [Toradol] 10 mg PO Q6H PRN #15 tablet 09/15/18 Unknown Rx traMADoL [Ultram] 50 mg PO Q6HR PRN #20 tablet 09/15/18 Unknown Rx Naproxen [Naprosyn] 500 mg PO BID #20 tablet 07/11/20 Unknown Rx traMADoL [Ultram] 50 mg PO Q6HR PRN #7 tablet 07/11/20 Unknown Rx Allergies Allergy/AdvReac Type Severity Reaction Status Date / Time No Known Allergies Allergy Verified 09/15/18 09:54 ED Past Medical Hx - Medications Home Medications: Home Medications Medication Instructions Recorded Confirmed Last Taken Type Cetirizine HCl [Allergy Relief] 10 mg PO DAILY #30 tablet 01/13/15 Unknown Rx Ciprofloxacin HCl [Cipro] 500 mg PO Q12H #14 tab 01/13/15 Unknown Rx Fluticasone Propionate [Flonase] 100 mcg NS QDAY #1 spray.susp 01/13/15 Unknown Rx Ibuprofen [Motrin] 800 mg PO Q8H PRN #30 tablet 01/13/15 Unknown Rx traMADoL [Ultram] 50 mg PO Q6HR PRN #14 tablet 01/13/15 Unknown Rx Starch 51%(Nf) [Anusol] 1 each MD BID PRN #10 supp.rect 05/23/15 Unknown Rx Cyclobenzaprine [Flexeril] 10 mg PO TID PRN #30 tablet 07/01/17 Unknown Rx Naproxen [Naprosyn TAB] 500 mg PO BID PRN #60 tablet 07/01/17 Unknown Rx Losartan [Cozaar] 100 mg PO QDAY #30 tablet 10/24/17 Unknown Rx amLODIPine 10 mg PO QDAY #30 tablet 10/24/17 Unknown Rx carvediloL [Coreg] 3.125 mg PO BID #60 tablet 10/24/17 Unknown Rx Ibuprofen [Motrin 800 MG tab] 800 mg PO Q8HR PRN #30 tablet 03/20/18 Unknown Rx Ketorolac [Toradol] 10 mg PO Q6H PRN #15 tablet 09/15/18 Unknown Rx traMADoL [Ultram] 50 mg PO Q6HR PRN #20 tablet 09/15/18 Unknown Rx Naproxen [Naprosyn] 500 mg PO BID #20 tablet 07/11/20 Unknown Rx traMADoL [Ultram] 50 mg PO Q6HR PRN #7 tablet 07/11/20 Unknown Rx ED Medical Decision Making - Lab Data Result diagrams: 02/17/21 13:07 02/17/21 13:07 - EKG Data EKG shows normal: sinus rhythm - EKG Data Interpretation: nonspecific ST-T wave magaly (ST elevation, probable normal early repole pattern) ED Disposition Clinical Impression: Bilateral lower extremity edema Disposition: Z-07 ELOPED Condition: Stable Instructions: Edema, [id number] Additional Instructions: Elevate your legs as often as possible to reduce swelling. Limit your dietary sodium intake. Wear compression socks as needed. Follow-up with primary care provider this week. Call tomorrow to schedule an appointment. See referral information below. Return to the emergency department immediately for new or worsening symptoms. Specifically, return to the emergency department immediately for chest pain, shortness of breath, loss of consciousness, difficulty urinating, increased swelling, or any other concerns. Referrals: ANH RUCKER MD [Staff Physician] - 3-5 Days <MICHAELARTHUR FLANNERY - Last Filed: 02/17/21 20:11> ED General Adult HPI - General Source: patient Mode of arrival: Ambulatory Limitations: No Limitations - History of Present Illness Initial comments: 35-year-old male patient presents to emergency department with complaints of progressively worsening bilateral lower extremity edema with associated l ightheadedness and palpitations for approximately 1 month. Patient states he has no known medical problems however he has not been to a primary care provider in many years. Denies fever, cough, chills, chest pain, syncope, paresthesias, numbness. Denies other complaints at this time. ED Review of Systems ROS: Stated complaint: BERNA LEG/FOOT PAIN Other details as noted in HPI Other: GENERAL: Negative for fever, chills, weight change, anorexia, fatigue. ENT: Negative for ear pain, difficulty hearing, sore throat, nasal congestion, epistaxis. CARDIOVASCULAR: Positive for palpitations and lower extremity edema. PULMONARY: Negative for cough, dyspnea, wheezing, orthopnea, cyanosis. GASTROINTESTINAL: Negative for abdominal pain, nausea, vomiting, diarrhea, constipation. MUSCULOSKELETAL: Negative for joint pain, joint swelling, myalgias, back pain, neck pain. NEUROLOGICAL: Positive for dizziness. INTEGUMENTARY: Negative for erythema, rash, diaphoresis, laceration, ecchymosis. HEMATOLOGICAL: Negative for hemoptysis, hematemesis, hematochezia, hematuria. PSYCHIATRIC: Negative for hallucinations, suicidal ideation, homicidal ideation, anxiety, depression. ED Past Medical Hx - Past Medical History Previous Medical History?: Yes Additional medical history: chest pain - Surgical History Past Surgical History?: Yes - Social History Smoking Status: Never Smoker Substance Use Type: None ED Physical Exam - General Limitations: No Limitations - Other Other exam information: General: Awake and alert. No acute distress. Head: Atraumatic, normocephalic. Eyes: EOMI. Pupils are equal and round. Normal sclera and conjunctiva. ENT: Oral mucosa is moist. Normal pharyngeal exam. Neck: Supple. No lymphadenopathy. Pulmonary: No respiratory distress. Clear to auscultation bilaterally. Cardiac: Regular rate and rhythm. Pulses are palpable and equal bilaterally. No lower extremity cyanosis. Mild bilateral nonpitting pedal and pretibial edema. Skin: Warm and dry. No rashes. Abdomen: Soft, non-tender, non-protuberant. No guarding, rigidity, or rebound. Bowel sounds are normal. No organomegaly or masses noted. Back: Normal alignment. No CVA tenderness. Extremities: Symmetrical. Full range of motion intact. Neurological: Alert and oriented, appropriately interactive, no focal deficits. Psych: Cooperative. Appropriate mood and affect. Speech is evenly metered. Thoughts are logically construed. ED Course Vital Signs 02/17/21 09:47 Temperature 98.3 F Pulse Rate 70 Respiratory 18 Rate Blood Pressure 143/97 O2 Sat by Pulse 96 Oximetry ED Medical Decision Making - Lab Data Result diagrams: 02/17/21 13:07 02/17/21 13:07 - Medical Decision Making Differential diagnosis including but not limited to: peripheral edema, congestive heart failure, pulmonary hypertension, cardiac arrhythmia, acute coronary syndrome, renal insufficiency, hepatic failure, electrolyte abnormality, peripheral vascular disease Diagnostic work-up in progress. Care of patient transferred to Pool Emery PA-C, at change of shift pending EKG results. Resulted labs within normal range; anticipate discharge home. Critical care attestation.: If time is entered above; I have spent that time in minutes in the direct care of this critically ill patient, excluding procedure time. ED Disposition Is pt being admited?: No Does the pt Need Aspirin: No
--- NOTE | 2021-02-17 12:52 | XRay Report ---
CHEST 2 VIEWS INDICATION / CLINICAL INFORMATION: Palpitations and lower extremity edema. COMPARISON: 10/23/2017. FINDINGS: SUPPORT DEVICES: None. HEART / MEDIASTINUM: The heart size and pulmonary vasculature are normal. LUNGS / PLEURA: No significant pulmonary or pleural abnormality. No pneumothorax. ADDITIONAL FINDINGS: There is mild partial eventration of the right hemidiaphragm anteriorly. There a re probable bilateral nipple piercings. IMPRESSION: No acute findings. Signer Name: John Li MD Signed: 02/17/2021 12:48 PM Workstation Name: [id number]
[2021-02-17 13:54] LABS: Basophils # (Auto) 0.1 K/mm3 (0.0-0.1); Basophils % (Auto) 0.7 % (0.0-1.8); Eosinophils # (Auto) 0.2 K/mm3 (0.0-0.4); Eosinophils % (Auto) 2.5 % (0.0-4.3); Hemoglobin 14.7 gm/dl (11.8-15.2); Lymphocytes # (Auto) 2.1 K/mm3 (1.2-5.4); Lymphocytes % (Auto) 23.6 % (13.4-35.0); Mean Corpuscular HGB Conc 34 % (32-34); Mean Corpuscular Volume 89 fl (84-94); Monocytes # (Auto) 0.8 K/mm3 (0.0-0.8); Monocytes % (Auto) 8.7 % (0.0-7.3); Platelet Count 276 K/mm3 (140-440); Red Blood Count 4.94 M/mm3 (3.65-5.03); Red Cell Distribution Width 14.3 % (13.2-15.2)
[2021-02-17 14:13] LABS: Alanine Aminotransferase 23 units/L (7-56); BUN/Creatinine Ratio 20; Blood Urea Nitrogen 16 mg/dL (9-20); Calcium 9.6 mg/dL (8.4-10.2); Hemolysis Index 3
--- NOTE | 2021-02-18 10:04 | Electrocardiograph Report ---
[facility] Test Date: 2021-02-17 Test Time: 18:48:56 Pat Name: BECCA CORLEY Department: Room: Gender: M [employer]: RHETT : 1985 Requested By: ARTHUR RODRIGUZE Order Number: [id number] Reading MD: Juanito Gary Measurements Intervals [place] Rate: 61 P: 12 VA: 150 QRS: -55 QRSD: 113 T: -8 QT: 405 QTc: 408 Interpretive Statements Sinus rhythm Nonspecific T abnormalities, inferior leads No previous ECG available for comparison Electronically Signed On 02-18-2021 10:04:36 EDT by Juanito Gary
== END 2021-02-17 22:59 | disposition left against medical advice (07) ==
LOC: ED 09:28
DX: R60.0 Localized edema (principal); R42 Dizziness and giddiness; R00.2 Palpitations; Z79.1 Long term (current) use of non-steroidal anti-inflammatories (NSAID); Z79.899 Other long term (current) drug therapy
CPT/HCPCS: 36415; 71046; 80053; 83735; 83880; 84484; 85025; 93005